=== PATIENT | male | born 1940 | race Caucasian/White ===

== ENCOUNTER → 2017-04-01 | Day surgery (SDC) | payer MEDICARE, BC ==
[~2017-04-01] VITALS: Ht 162.5 cm; Wt 81.6 kg
[~2017-04-01] MED LIST: ADVAIR 500/501 E1 INH; ADVAIR 500/501 EA INH; ALBUTER; ALBUTEROL0.09 MG/A2 INH; ASPIRIN CHILDRE81 MG PO; ASPIRIN80 MG PO; ASPIRIN81 M1 PO; ATORVASTATIN CA40 M1 PO; CHEWABLE ASPIRI81 MG PO; CIPRO500 MG PO; CIPROFLOXACIN500 MG PO; CLARITIN PO; CLARITIN10 MG; COREG6.25 MG PO; Clopidogrel75 MG PO; DELTASONE10 MG PO; DOXYCYCLINE MO100 MG PO; DOXYCYCLINE100 M3 PO; FISH OIL 10001000 MG PO; IFEREX 150150 MG PO; IRON325 M1 PO; K-DUR 20MEQ20 MEQ PO; KCL PO; LASIX20 MG PO; LASIX40 MG PO; LEVAQUIN25 MG/M1 PO; LEVAQUIN250 MG PO; LEVAQUIN500 M2 PO; LEVAQUIN750 MG PO; LEVOFLOXACIN500 MG PO; OMEPRAZOLE DR20 MG PO; OMEPRAZOLE PO; PANTOPRAZOLE40 MG PO; PAXIL10 MG PO; PREDNICOT10 MG PO; PREDNICOT20 MG PO; PREDNISONE10 MG PO; PREDNISONE20 MG; PREDNISONE20 MG PO; PRILOSEC20 M1 PO; PROTONIX40 MG PO; PYRIDIUM200 MG PO; REGLAN5 MG PO; SIMVASTATIN20 MG PO; SINGULAIR; SINGULAIR10 MG; SPIRIVA18 MCG IH; SPIRIVA18 MCG PO; VENTOLIN H0.09 MG/AC INH; VICODIN 5/500 505 MG PO; VICODIN 500 MG-1 TAB PO; VITAMIN D32000 UNIT PO; VITAMIN E400 I1 PO; Ventolin 02.5 MG/3 M INH; ZOCOR20 MG PO
[2017-04-01 09:57] VITALS: BP 164/74
[2017-04-01 12:23] VITALS: BP 104/62
[2017-04-01 12:38] VITALS: BP 123/66
[2017-04-01 12:53] VITALS: BP 128/78
== END ==
LOC: SDC 03-27 09:30
DX: L72.0 Epidermal cyst (principal); I25.2 Old myocardial infarction; I25.10 Atherosclerotic heart disease of native coronary artery without angina pectoris; J45.909 Unspecified asthma, uncomplicated; K21.9 Gastro-esophageal reflux disease without esophagitis; Z95.5 Presence of coronary angioplasty implant and graft; Z88.8 Allergy status to other drugs, medicaments and biological substances; Z79.899 Other long term (current) drug therapy; I71.4 Abdominal aortic aneurysm, without rupture; Z87.891 Personal history of nicotine dependence; J43.9 Emphysema, unspecified; Z82.49 Family history of ischemic heart disease and other diseases of the circulatory system

== ENCOUNTER → 2019-01-26 | Outpatient (CLI) | payer MEDICARE, BC ==
[~2019-01-26] MED LIST changes: +DALI500T PO; +PREDNISONE5 MG PO
[2019-01-26 09:18] LABS: BASO # 0.1 10*3/uL (0.0-0.1); BASO % 0.7 % (0.0-1.0); EOS # 0.4 10*3/uL (0.0-0.4); EOS % 4.1 % (1.0-4.0); HEMATOCRIT 42.9 % (42.0-52.0); HEMOGLOBIN 13.4 g/dl (14.0-18.0); LYMPH # 1.5 10*3/uL (1.3-4.4); LYMPH % 16.8 % (27.0-41.0); MEAN CELL VOLUME 84.6 fl (80.0-94.0); MEAN CORPUSCULAR HGB 26.4 pg (27.0-31.0); MEAN CORPUSCULAR HGB CONC 31.2 g/dl (33.0-37.0); MONO # 0.5 10*3/uL (0.1-1.0); MONO % 5.8 % (3.0-9.0); NEUT # 6.3 10*3/uL (2.3-7.9); NEUT % 72.3 % (47.0-73.0); PLATELET COUNT AUTOMATED 367 10*3/uL (130-400); RED BLOOD COUNT 5.07 10*6/uL (4.50-5.90); WHITE BLOOD COUNT 8.8 10*3/uL (4.8-10.8)
[2019-01-26 09:52] LABS: ALBUMIN 3.3 gm/dl (3.1-4.5); BUN 11 mg/dl (7-24); CHLORIDE 105 mmol/L (98-107); CHOLESTEROL 131 mg/dL (<200); IRON 36 ug/dL (65-175); POTASSIUM 3.6 mmol/L (3.5-5.1); SGOT/AST 12 IU/L (3-35); SGPT/ALT 12 U/L (12-78); SODIUM 141 mmol/L (136-145); TRIGLYCERIDES 224 mg/dl (<150); VLDL CHOLESTEROL 45 mg/dL (6-40)
[2019-01-26 10:00] LABS: ALKALINE PHOSPHATASE 101 U/L (45-117); FREE T4 1.13 ng/dl (0.76-1.46); HDL CHOLESTEROL 31 mg/dl (40-60); LDL CHOLESTEROL 55 mg/dL (9-159); TOTAL IRON BINDING CAPACITY 310 ug/dl (250-450); TOTAL PROTEIN 7.9 gm/dL (6.4-8.2)
[2019-01-26 10:55] LABS: FERRITIN 28.8 ng/mL (22.0-322.0); VITAMIN D, 25-HYDROXY 44.2 ng/mL (30-100)
== END | disposition home or self-care (01) ==
LOC: LAB 08:38
PROVIDERS: Internal Medicine
DX: D50.8 Other iron deficiency anemias (principal); E78.2 Mixed hyperlipidemia; E55.9 Vitamin D deficiency, unspecified; I10 Essential (primary) hypertension; D52.9 Folate deficiency anemia, unspecified; D51.9 Vitamin B12 deficiency anemia, unspecified

== ENCOUNTER → 2020-02-25 | Outpatient (CLI) | payer MEDICARE, BC | END | disposition home or self-care (01) | LOC: LAB 10:38 | PROVIDERS: ATTEND Internal Medicine | DX: J44.1 Chronic obstructive pulmonary disease with (acute) exacerbation (principal); J20.9 Acute bronchitis, unspecified ==

== ENCOUNTER → 2020-03-09 | Outpatient (CLI) | payer MEDICARE, BC ==
[2020-03-09 10:07] LABS: BASO # 0.1 10*3/uL (0.0-0.1); BASO % 0.4 % (0.0-1.0); EOS # 0.1 10*3/uL (0.0-0.4); EOS % 0.9 % (1.0-4.0); HEMATOCRIT 44.5 % (42.0-52.0); LYMPH # 1.3 10*3/uL (1.3-4.4); LYMPH % 10.7 % (27.0-41.0); MEAN CELL VOLUME 83.5 fl (80.0-94.0); MEAN CORPUSCULAR HGB 25.1 pg (27.0-31.0); MEAN CORPUSCULAR HGB CONC 30.1 g/dl (33.0-37.0); MEAN PLATELET VOLUME 8.8 fl (9.6-12.3); MONO % 8.3 % (3.0-9.0); NEUT # 9.8 10*3/uL (2.3-7.9); NEUT % 78.9 % (47.0-73.0); PLATELET COUNT AUTOMATED 347 10*3/uL (130-400); RED BLOOD COUNT 5.33 10*6/uL (4.50-5.90); RED CELL DISTRI WIDTH 19.7 % (0-14.5); WHITE BLOOD COUNT 12.4 10*3/uL (4.8-10.8)
[2020-03-09 10:38] LABS: ALBUMIN 3.2 gm/dl (3.1-4.5); ALKALINE PHOSPHATASE 89 U/L (45-117); BUN 11 mg/dl (7-24); CHLORIDE 107 mmol/L (98-107); CHOLESTEROL 166 mg/dL (<200); CPK 47 U/L (39-308); CREATININE 0.95 mg/dL (0.70-1.30); FREE T4 0.97 ng/dl (0.76-1.46); HDL CHOLESTEROL 49 mg/dl (40-60); LDL CHOLESTEROL 85 mg/dL (9-159); POTASSIUM 4.7 mmol/L (3.5-5.1); SGOT/AST 14 IU/L (3-35); SGPT/ALT 33 U/L (12-78); SODIUM 143 mmol/L (136-145); TOTAL PROTEIN 7.5 gm/dL (6.4-8.2); TRIGLYCERIDES 161 mg/dl (<150); VLDL CHOLESTEROL 32 mg/dL (6-40)
[2020-03-09 11:23] LABS: VITAMIN D, 25-HYDROXY 33.5 ng/mL (30-100)
== END | disposition home or self-care (01) ==
LOC: LAB 09:36
PROVIDERS: ATTEND Internal Medicine
DX: Z12.5 Encounter for screening for malignant neoplasm of prostate (principal); I10 Essential (primary) hypertension; E55.9 Vitamin D deficiency, unspecified; E78.2 Mixed hyperlipidemia; D50.8 Other iron deficiency anemias; Z00.00 Encounter for general adult medical examination without abnormal findings

== ENCOUNTER 2020-09-06 09:19 | Inpatient (IN) | payer MEDICARE, BC ==
[2020-09-06] VITALS (11 sets, daily range): BP systolic 120–127; BP diastolic 70–81
[~2020-09-06] VITALS: Ht 162.5 cm; Wt 80.5 kg
[2020-09-06 10:46] LABS: BASO # 0.1 10*3/uL (0.0-0.1); BASO % 0.7 % (0.0-1.0); EOS # 0.3 10*3/uL (0.0-0.4); EOS % 2.4 % (1.0-4.0); HEMATOCRIT 43.1 % (42.0-52.0); LYMPH # 1.2 10*3/uL (1.3-4.4); LYMPH % 9.9 % (27.0-41.0); MEAN CELL VOLUME 79.8 fl (80.0-94.0); MEAN CORPUSCULAR HGB CONC 31.3 g/dl (33.0-37.0); MEAN PLATELET VOLUME 8.9 fl (9.6-12.3); MONO % 7.8 % (3.0-9.0); NEUT # 9.7 10*3/uL (2.3-7.9); NEUT % 78.8 % (47.0-73.0); PLATELET COUNT AUTOMATED 431 10*3/uL (130-400); RED CELL DISTRI WIDTH 16.7 % (0-14.5); WHITE BLOOD COUNT 12.3 10*3/uL (4.8-10.8)
[2020-09-06 11:02] LABS: ACT PARTIAL THROMBO TIME 27.4 SECONDS (20.0-32.1); ALBUMIN 3.5 gm/dl (3.1-4.5); ALKALINE PHOSPHATASE 112 U/L (45-117); BUN 12 mg/dl (7-24); CHLORIDE 105 mmol/L (98-107); CREATININE 0.93 mg/dL (0.70-1.30); POTASSIUM 4.1 mmol/L (3.5-5.1); SGOT/AST 12 IU/L (3-35); SGPT/ALT 21 U/L (12-78); SODIUM 137 mmol/L (136-145); TOTAL PROTEIN 8.1 gm/dL (6.4-8.2); URIC ACID 7.6 mg/dL (3.5-7.2)
[2020-09-07 03:00] VITALS: BP 122/74
[2020-09-07 05:38] VITALS: BP 119/77
[2020-09-07 06:06] LABS: ALBUMIN 3.3 gm/dl (3.1-4.5); BUN 12 mg/dl (7-24); CHLORIDE 105 mmol/L (98-107); POTASSIUM 4.3 mmol/L (3.5-5.1); SGOT/AST 15 IU/L (3-35); SGPT/ALT 20 U/L (12-78); SODIUM 141 mmol/L (136-145); TOTAL PROTEIN 7.9 gm/dL (6.4-8.2)
[2020-09-07 06:07] LABS: ALKALINE PHOSPHATASE 110 U/L (45-117); CREATININE 1.04 mg/dL (0.70-1.30)
[2020-09-07 06:25] LABS: BASO # 0.1 10*3/uL (0.0-0.1); BASO % 0.8 % (0.0-1.0); EOS # 0.4 10*3/uL (0.0-0.4); EOS % 4.2 % (1.0-4.0); HEMATOCRIT 43.2 % (42.0-52.0); LYMPH # 1.2 10*3/uL (1.3-4.4); LYMPH % 11.7 % (27.0-41.0); MEAN CELL VOLUME 82.3 fl (80.0-94.0); MEAN CORPUSCULAR HGB 25.3 pg (27.0-31.0); MEAN CORPUSCULAR HGB CONC 30.8 g/dl (33.0-37.0); MEAN PLATELET VOLUME 9.5 fl (9.6-12.3); MONO # 0.8 10*3/uL (0.1-1.0); MONO % 7.7 % (3.0-9.0); NEUT % 75.1 % (47.0-73.0); PLATELET COUNT AUTOMATED 432 10*3/uL (130-400); RED BLOOD COUNT 5.25 10*6/uL (4.50-5.90); RED CELL DISTRI WIDTH 16.8 % (0-14.5); WHITE BLOOD COUNT 10.6 10*3/uL (4.8-10.8)
[2020-09-07 07:29] VITALS: BP 136/62
[2020-09-07 12:04] VITALS: BP 138/74
[2020-09-07 15:10] VITALS: BP 154/68
[2020-09-07 20:00] VITALS: BP 123/64
[2020-09-08] VITALS: BP 116/55
[2020-09-08 08:00] VITALS: BP 122/58
[2020-09-08 16:00] VITALS: BP 102/66
[2020-09-08 20:00] VITALS: BP 145/69
[2020-09-09 08:00] VITALS: BP 143/72
[2020-09-09] MEDS ORDERED: GLUCOPHAGE500 MG PO (08:09)
[2020-09-09] MEDS ORDERED: DOXYCYCLINE100 M3 PO (08:09)
[2020-09-09] MEDS ORDERED: PREDNISONE5 MG PO (08:09)
[2020-09-09] MEDS ORDERED: ASPIRIN ADULT L81 M2 PO (08:09)
[2020-09-09] MEDS ORDERED: CELECOXIB200 M1 PO (08:09)
== END 2020-09-09 09:44 | disposition home or self-care (01) | DRG 558 ==
LOC: ED 09:19 → EDHOLD 13:36 → 5E 13:36 → EDHOLD 17:37 → 5E 09-07 14:15
PROVIDERS: Emergency Medicine; ADMIT Internal Medicine; ATTEND Internal Medicine
DX: M70.21 Olecranon bursitis, right elbow (principal); L03.113 Cellulitis of right upper limb; J44.1 Chronic obstructive pulmonary disease with (acute) exacerbation; J96.10 Chronic respiratory failure, unspecified whether with hypoxia or hypercapnia; I10 Essential (primary) hypertension; E78.2 Mixed hyperlipidemia; K08.409 Partial loss of teeth, unspecified cause, unspecified class; E11.65 Type 2 diabetes mellitus with hyperglycemia; T38.0X5A Adverse effect of glucocorticoids and synthetic analogues, initial encounter; I25.10 Atherosclerotic heart disease of native coronary artery without angina pectoris; Z95.5 Presence of coronary angioplasty implant and graft; Z98.52 Vasectomy status; Z82.49 Family history of ischemic heart disease and other diseases of the circulatory system; Y92.89 Other specified places as the place of occurrence of the external cause

== ENCOUNTER 2022-04-18 12:58 | Emergency (ER) | payer MEDICARE, BC ==
[~2022-04-18] VITALS: Ht 162.5 cm; Wt 69.4 kg
[~2022-04-18 12:58] MED LIST changes: +ASPIRIN ADULT L81 M2 PO; +CELECOXIB200 M1 PO; +GLUCOPHAGE500 MG PO
[2022-04-18 14:02] VITALS: BP 121/49
[2022-04-18 14:55] LABS: BASO % 0.4 % (0.0-1.0); EOS # 0.2 10*3/uL (0.0-0.4); EOS % 3.1 % (1.0-4.0); HEMATOCRIT 38.3 % (42.0-52.0); LYMPH # 0.7 10*3/uL (1.3-4.4); LYMPH % 12.9 % (27.0-41.0); MEAN CELL VOLUME 79.8 fl (80.0-94.0); MEAN CORPUSCULAR HGB 25.2 pg (27.0-31.0); MEAN CORPUSCULAR HGB CONC 31.6 g/dl (33.0-37.0); MONO # 0.6 10*3/uL (0.1-1.0); MONO % 11.8 % (3.0-9.0); NEUT # 3.7 10*3/uL (2.3-7.9); NEUT % 71.4 % (47.0-73.0); PLATELET COUNT AUTOMATED 278 10*3/uL (130-400); RED CELL DISTRI WIDTH 18.6 % (0-14.5); WHITE BLOOD COUNT 5.2 10*3/uL (4.8-10.8)
[2022-04-18 15:06] LABS: ACT PARTIAL THROMBO TIME 30.2 SECONDS (20.0-32.1)
[2022-04-18 15:19] LABS: ALKALINE PHOSPHATASE 65 U/L (46-116); BUN 16 mg/dl (9-23); CHLORIDE 101 mmol/L (98-107); CREATININE 0.95 mg/dL (0.70-1.30); LIPASE 31 U/L (12-53); POTASSIUM 3.5 mmol/L (3.4-5.1); SGPT/ALT 14 U/L (10-49); SODIUM 137 mmol/L (136-145); TOTAL PROTEIN 7.5 gm/dL (6.0-8.0)
[2022-04-18] MEDS ORDERED: PAXLOVID 300-11 EAC2 PO (17:07)
[2022-04-18] MEDS ORDERED: PREDNISONE20 M1 PO (17:07)
== END 2022-04-18 18:57 | disposition home or self-care (01) ==
LOC: ED 12:58
PROVIDERS: Family Medicine
DX: U07.1 COVID-19 (principal); J44.9 Chronic obstructive pulmonary disease, unspecified; Z79.899 Other long term (current) drug therapy

== ENCOUNTER → 2024-04-24 | Outpatient (CLI) | payer MEDICARE, BC ==
[~2024-04-24] MED LIST changes: +CEFUROXIME AXE250 MG PO; +Ipratropium Brom3 ML INH; +LOSARTAN POTASS25 M1 PO; +OMEPRAZOLE40 MG PO; +PAXLOVID 300-11 EAC2 PO; +PREDNISONE20 M1 PO; +TUDORZA PRESS400 MCG INH; +VENT7GM INH; +WIXELA 500-501 EACH INH
[2024-04-24 10:00] LABS: BASO # 0.1 10*3/uL (0.0-0.1); BASO % 0.7 % (0.0-1.0); EOS # 0.5 10*3/uL (0.0-0.4); EOS % 5.4 % (1.0-4.0); HEMATOCRIT 38.1 % (42.0-52.0); MEAN CELL VOLUME 75.1 fl (80.0-94.0); MEAN CORPUSCULAR HGB 22.1 pg (27.0-31.0); MEAN CORPUSCULAR HGB CONC 29.4 g/dl (33.0-37.0); MEAN PLATELET VOLUME 8.6 fl (9.6-12.3); MONO # 0.7 10*3/uL (0.1-1.0); MONO % 7.3 % (3.0-9.0); NEUT # 6.8 10*3/uL (2.3-7.9); NEUT % 72.6 % (47.0-73.0); PLATELET COUNT AUTOMATED 457 10*3/uL (130-400); RED BLOOD COUNT 5.07 10*6/uL (4.50-5.90); RED CELL DISTRI WIDTH 19.3 % (0-14.5); WHITE BLOOD COUNT 9.4 10*3/uL (4.8-10.8)
[2024-04-24 10:36] LABS: ALKALINE PHOSPHATASE 120 U/L (46-116); BUN 14 mg/dl (9-23); CHLORIDE 103 mmol/L (98-107); CHOLESTEROL 126 mg/dL (<200); FREE T4 1.34 ng/dl (0.89-1.76); LDL CHOLESTEROL 56 mg/dL (9-159); POTASSIUM 4.3 mmol/L (3.4-5.1); SGPT/ALT < 7 U/L (5-49); TOTAL PROTEIN 7.9 gm/dL (6.0-8.0); TRIGLYCERIDES 192 mg/dl (<150)
[2024-04-24 10:40] LABS: VITAMIN D, 25-HYDROXY 46.7 ng/mL (30-100)
== END | disposition home or self-care (01) ==
LOC: LAB 09:44
PROVIDERS: ATTEND Internal Medicine
DX: I10 Essential (primary) hypertension (principal); E11.9 Type 2 diabetes mellitus without complications; E78.2 Mixed hyperlipidemia; R79.82 Elevated C-reactive protein (CRP); D50.8 Other iron deficiency anemias; E55.9 Vitamin D deficiency, unspecified; R53.83 Other fatigue; E53.9 Vitamin B deficiency, unspecified

== ENCOUNTER → 2024-10-01 | Outpatient (CLI) | payer MEDICARE, BC | END | disposition home or self-care (01) | LOC: LAB 08:41 | PROVIDERS: ATTEND Internal Medicine | DX: Z12.5 Encounter for screening for malignant neoplasm of prostate (principal); R97.20 Elevated prostate specific antigen [PSA] ==

== ENCOUNTER 2024-10-13 08:27 | Emergency (ER) | payer MEDICARE, BC ==
[~2024-10-13] VITALS: Ht 167.6 cm; Wt 68.0 kg
[2024-10-13 08:35] VITALS: BP 117/50
[2024-10-13] MEDS ORDERED: MAGNESIUM SULFATE 50 ML IV ONE (08:40)
[2024-10-13] MEDS ORDERED: methylPREDNISolone sod succ 125 MG VIAL IV ONE (08:40)
[2024-10-13] MEDS ORDERED: AZITHROMYCIN 250 MG TAB PO ONE (08:40)
[2024-10-13] MEDS ORDERED: Albuterol Sulfate 2.5 MG/3 ML VIAL NEB ONE (08:40)
[2024-10-13 08:46] LABS: BASO # 0.1 10*3/uL (0.0-0.1); BASO % 1.1 % (0.0-1.0); EOS # 0.5 10*3/uL (0.0-0.4); EOS % 5.8 % (1.0-4.0); HEMATOCRIT 37.4 % (42.0-52.0); MEAN CELL VOLUME 74.8 fl (80.0-94.0); MEAN CORPUSCULAR HGB 22.2 pg (27.0-31.0); MEAN CORPUSCULAR HGB CONC 29.7 g/dl (33.0-37.0); MEAN PLATELET VOLUME 9.2 fl (9.6-12.3); MONO # 0.7 10*3/uL (0.1-1.0); MONO % 8.1 % (3.0-9.0); NEUT # 6.5 10*3/uL (2.3-7.9); NEUT % 72.3 % (47.0-73.0); PLATELET COUNT AUTOMATED 404 10*3/uL (130-400); RED CELL DISTRI WIDTH 20.2 % (0-14.5)
[2024-10-13 09:04] LABS: ACT PARTIAL THROMBO TIME 25.6 SECONDS (20.0-32.1)
[2024-10-13 09:24] LABS: ALKALINE PHOSPHATASE 109 U/L (46-116); BUN 13 mg/dl (9-23); CHLORIDE 105 mmol/L (98-107); POTASSIUM 4.1 mmol/L (3.4-5.1); SGPT/ALT 16 U/L (5-49); TOTAL PROTEIN 7.2 gm/dL (6.0-8.0)
[2024-10-13] MEDS ORDERED: AVPAK AZITHROM250 M1 PO (09:51)
[2024-10-13] MEDS ORDERED: PREDNISONE20 M1 PO (09:51)
== END 2024-10-13 10:17 | disposition home or self-care (01) ==
LOC: ED 08:27
PROVIDERS: Emergency Medicine
DX: J44.1 Chronic obstructive pulmonary disease with (acute) exacerbation (principal); I25.10 Atherosclerotic heart disease of native coronary artery without angina pectoris; Z79.82 Long term (current) use of aspirin; Z79.899 Other long term (current) drug therapy; Z98.890 Other specified postprocedural states

== ENCOUNTER → 2025-02-03 | Outpatient (CLI) | payer MEDICARE, BC ==
[~2025-02-03] MED LIST changes: +AVPAK AZITHROM250 M1 PO; +DUTASTERIDE0.5 MG PO; +FEROSUL325 MG PO; +TAMSULOSIN HCL0.4 MG PO; +VITAMIN D31250 MC1 PO
[2025-02-03 09:23] LABS: BASO # 0.1 10*3/uL (0.0-0.1); BASO % 0.7 % (0.0-1.0); EOS # 0.2 10*3/uL (0.0-0.4); EOS % 2.1 % (1.0-4.0); MEAN CELL VOLUME 82.6 fl (80.0-94.0); MEAN CORPUSCULAR HGB 25.3 pg (27.0-31.0); MEAN PLATELET VOLUME 9.2 fl (9.6-12.3); MONO # 0.8 10*3/uL (0.1-1.0); MONO % 9.4 % (3.0-9.0); NEUT # 5.9 10*3/uL (2.3-7.9); NEUT % 74.0 % (47.0-73.0); NUCLEATED RED BLOOD CELL 0.0 % (0.0-0.0); NUCLEATED RED BLOOD CELL 0.0 10*3/uL (0.0-0.0); PLATELET COUNT AUTOMATED 302 10*3/uL (130-400); RED CELL DISTRI WIDTH 21.8 % (0-14.5)
[2025-02-03 09:39] LABS: BUN 17 mg/dl (9-23); FREE T4 1.20 ng/dl (0.89-1.76); LDL CHOLESTEROL 68 mg/dL (9-159); SGPT/ALT 15 U/L (5-49)
[2025-02-03 09:42] LABS: VITAMIN D, 25-HYDROXY 41.4 ng/mL (30-100)
== END | disposition home or self-care (01) ==
LOC: LAB 08:40
PROVIDERS: ATTEND Internal Medicine
DX: I10 Essential (primary) hypertension (principal); E78.2 Mixed hyperlipidemia; D50.8 Other iron deficiency anemias; D50.9 Iron deficiency anemia, unspecified; E55.9 Vitamin D deficiency, unspecified